=== PATIENT | female | born 1945 | race Caucasian/White ===

== ENCOUNTER 2019-08-10 09:54 | Outpatient (CLI) | payer MEDICARE, OTHER, SELFPAY ==
--- NOTE | ~2019-08-10 | MR_ITS ---
EXAMINATION: MR lumbar spine wo con EXAM DATE: 08/10/2019 10:43 INDICATION: Dorsalgia, sciatica, low back pain, bilateral leg pain, symptoms 6 weeks. TECHNIQUE: Multi-sequential, multiplanar MR images of the lumbar spine were obtained without contrast . Sagittal T1, T2, T2 fat saturation images. Axial T2 weighted images. There is no prior study for comparison. FINDINGS: There is severe disc disease L1-2, L3-4 and L4-5, moderate at L2-3 and L5-S1. There is mild diffuse loss of vertebral body heights, chronic compression fractures. There is mild lumbar levoscol iosis. The conus medullaris terminates at the L1 level and has normal signal intensity and morphology . Large amount of epidural fat posteriorly causing narrowing of the thecal sac. There are no focal m arrow signal abnormalities suspicious for malignancy or acute fracture. Paraspinal soft tissue is unr emarkable. Level by level evaluation: T12-L1: There is a mild to moderate diffuse disc bulge. Facet arthropathy: Mild to moderate. Neural foraminal stenosis: Mild right. Central canal stenosis: Mild to moderate. L1-L2: There is a moderate to large diffuse disc bulge. Facet arthropathy: Moderate . Ligamentum flavum enlargement. Neural foraminal stenosis: Moderate left, mild to moderate right. Central canal stenosis: Moderate. L2-L3: There is a moderate to large diffuse disc bulge. Facet arthropathy: Mild to moderate . Ligamentum flavum enlargement. Neural foraminal stenosis: Mild to moderate right, mild left. Central canal stenosis: Mild to moderate. L3-L4: There is a large diffuse disc bulge. Facet arthropathy: Moderate to severe . Ligamentum flavum enlargement. Neural foraminal stenosis: Moderate to severe right, mild to moderate left. Central canal stenosis: Mild to moderate. L4-L5: There is a large diffuse disc bulge. Facet arthropathy: Severe . Ligamentum flavum enlargement. Neural foraminal stenosis: Severe right, moderate to severe left. Central canal stenosis: Moderate, narrowing of the lateral recesses. L5-S1: There is a large diffuse disc bulge. Facet arthropathy: Severe. Neural foraminal stenosis: Moderate to severe left, moderate right. Central canal stenosis: Mild to moderate. IMPRESSION: 1. Advanced lumbar spondylosis. Reviewed, dictated and finalized at location A.
== END 2019-08-10 09:55 | disposition home or self-care (01) ==
PROVIDERS: PCP Family Medicine; Visit Provider Family Medicine
DX: M54.9 Dorsalgia, unspecified (principal); M54.30 Sciatica, unspecified side; M47.816 Spondylosis without myelopathy or radiculopathy, lumbar region
CPT/HCPCS: 72148

== ENCOUNTER 2020-02-09 09:28 | Outpatient (CLI) | payer MEDICARE, OTHER, SELFPAY ==
--- NOTE | ~2020-02-09 | US_ITS ---
EXAMINATION:US venous doppler LE BI INDICATION:Leg edema for 2-3 weeks. TECHNIQUE: Multiple grayscale, color flow and Doppler images of the right and left lower extremity de ep venous systems were obtained and reviewed. COMPARISON:No prior studies for comparison. FINDINGS: The common femoral, superficial femoral and popliteal veins demonstrate normal respiratory variation, augmentation and compressibility. Color flow is also seen within the posterior tibial, pe roneal, greater saphenous and profunda veins. IMPRESSION: 1: No lower extremity deep venous thrombosis. Reviewed, dictated and finalized at location A. [employer]
== END 2020-02-09 09:29 | disposition home or self-care (01) ==
PROVIDERS: PCP Family Medicine; Visit Provider Family Medicine
DX: R60.9 Edema, unspecified (principal)
CPT/HCPCS: 93970

== ENCOUNTER 2020-02-10 12:14 | Outpatient (CLI) | payer MEDICARE, OTHER, SELFPAY ==
--- NOTE | ~2020-02-10 | XR_ITS ---
EXAMINATION: XR ankle LT min 3V, XR foot LT min 3V EXAM DATE: 02/10/2020 12:34 INDICATION: M25.579 - Pain in unspecified ankle and joints of unspecified foot. TECHNIQUE: Left foot dorsoplantar, lateral and oblique projections obtained and reviewed. Left ankle frontal, lateral and oblique projections obtained and reviewed. There is no prior study for compari son. FINDINGS: Left metatarsal bones unremarkable. The left ankle mortise appears intact. There is mil d to moderate left metatarsophalangeal joint primary osteoarthritis. Moderate-sized inferior calcane al spur. There are no bony erosions identified. There are no acute fractures or dislocations identifi ed. There is no subcutaneous gas. The soft tissue is unremarkable. There are no radiopaque foreig n bodies. IMPRESSION: 1. 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 2. Inferior calcaneal spur. 3. Unremarkable ankle. Reviewed, dictated and finalized at location B. [facility] IMPRESSION: 1. 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 2. Inferior calcaneal spur. 3. Unremarkable ankle.
== END 2020-02-10 12:15 | disposition home or self-care (01) ==
PROVIDERS: PCP Family Medicine; Visit Provider Family Medicine
DX: M79.89 Other specified soft tissue disorders (principal); M25.579 Pain in unspecified ankle and joints of unspecified foot; M25.572 Pain in left ankle and joints of left foot; M25.472 Effusion, left ankle; M79.672 Pain in left foot; M19.072 Primary osteoarthritis, left ankle and foot; M77.32 Calcaneal spur, left foot
CPT/HCPCS: 73610; 73630

== ENCOUNTER 2021-01-28 21:22 | Emergency (ER) | payer MEDICARE, OTHER, SELFPAY ==
[2021-01-28 21:24] VITALS: BP 181/77; PULSE 92; RESP 17; TEMP 36.3; O2SAT 98
--- NOTE | 2021-01-28 22:14 | ED.GENADULT ---
HPI - General Adult General Chief complaint: Eye Problems Stated complaint: Right eye pain Time Seen by Provider: 01/28/21 21:51 History of Present Illness HPI narrative: Patient is a 75-year-old female presents the emergency department with chief complaint of right eye pain. 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 The patient states that today she started having pain with movement of her right eye reports that its been tearing and reports that it was sore around the socket. The patient states she has had some injection in her current conjunctive a denies trauma to the eye the patient states that she has had no nausea no vomiting denies fever denies redness of the orbit or eyelid. Related Data Home Medications Medication Instructions Recorded Confirmed aspirin 81 mg tablet,delayed 81 mg PO DAILY 07/07/19 01/04/21 release mometasone 50 mcg/actuation nasal 2 spray NASAL BID gm 08/04/19 01/04/21 spray naproxen 500 mg tablet 500 mg PO TID tablet 04/22/20 01/04/21 Allergies Allergy/AdvReac Type Severity Reaction Status Date / Time No Known Allergies Allergy Verified 01/04/21 13:50 Review of Systems Review of Systems: A 10 system review of systems was completed on the patient and is negative except for what is stated in the HPI. Nursing and ancillary documentation was reviewed. [facility] Surgical History Surgical History H/O laminectomy History of hysterectomy (~1993) History of knee replacement (~2013) right History of tonsillectomy Hx of cholecystectomy (~2006) Family History Family History Mother Family history of cardiovascular disease Family history of congestive heart failure Social History Social History Smoking status: Never smoker Alcohol intake: current Exam Narrative: GENERAL: Well-appearing, well-nourished, and in no acute distress. HEAD: Normocephalic, atraumatic. EYES: PERRLA and EOMI. there is a small corneal abrasion present at the 5 o'clock position of the right with slight uptake of fluorescein ENT: Nares clear, no rhinorrhea or epistaxis. Mucous membranes moist. NECK: Supple. CHEST: Clear to auscultation. No respiratory distress. HEART: Regular rate and rhythm. No murmur heard. Normal peripheral pulses. ABDOMEN: Soft, nontender, nondistended, normal active bowel sounds. EXTREMITIES: Normal range of motion. No edema. SKIN: Warm, dry, no rash. NEURO: No focal deficits. Alert and oriented x3. PSYCH: Normal mood and affect. Course Vital Signs Vital signs: Vital Signs Temperature 36.3 C L 01/28/21 21:24 Pulse Rate 92 01/28/21 21:24 Respiratory Rate 17 01/28/21 21:24 Blood Pressure 181/77 H 01/28/21 21:24 Pulse Oximetry 98 01/28/21 21:24 Temperature 36.3 C L 01/28/21 21:24 Pulse Rate 92 01/28/21 21:24 Respiratory Rate 17 01/28/21 21:24 Blood Pressure 181/77 H 01/28/21 21:24 Pulse Oximetry 98 01/28/21 21:24 Medical Decision Making Vital Signs Vital Signs: Vital Signs Temperature 36.3 C L 01/28/21 21:24 Pulse Rate 92 01/28/21 21:24 Respiratory Rate 17 01/28/21 21:24 Blood Pressure 181/77 H 01/28/21 21:24 Pulse Oximetry 98 01/28/21 21:24 Temperature 36.3 C L 01/28/21 21:24 Pulse Rate 92 01/28/21 21:24 Respiratory Rate 17 01/28/21 21:24 Blood Pressure 181/77 H 01/28/21 21:24 Pulse Oximetry 98 01/28/21 21:24 Discharge Plan Discharge Clinical Impression: Injury of conjunctiva and corneal abrasion of right eye w/o FB Qualifiers: Encounter type: initial encounter Qualified Code(s): S05.01XA - Injury of conjunctiva and corneal abrasion without foreign body, right eye, initial encounter Patient Disposition: Home, Self-Care Condi
== END 2021-01-28 22:37 | disposition home or self-care (01) ==
PROVIDERS: Emergency Provider Emergency Medicine; PCP Family Medicine
DX: S05.01XA Injury of conjunctiva and corneal abrasion without foreign body, right eye, initial encounter (principal); Z79.82 Long term (current) use of aspirin; Z79.1 Long term (current) use of non-steroidal anti-inflammatories (NSAID); X58.XXXA Exposure to other specified factors, initial encounter
CPT/HCPCS: 99283; A9270